=== PATIENT | female | born 1985 | race Caucasian/White ===

== ENCOUNTER → 2016-07-07 | Outpatient (CLI) | payer OTHER ==
[~2016-07-07] MED LIST: GADOBUTROL 10 ML VIAL IVP ONE
== END ==
LOC: FIMAGING 09:34
PROVIDERS: ATTEND Obstetrics & Gynecology
DX: R92.8 Other abnormal and inconclusive findings on diagnostic imaging of breast (principal); Z15.01 Genetic susceptibility to malignant neoplasm of breast
CPT/HCPCS: 0159T; A9585; C8908

== ENCOUNTER → 2016-07-19 | Outpatient (CLI) | payer OTHER | LOC: FIMAGING 07-14 14:36 | PROVIDERS: ATTEND Obstetrics & Gynecology | DX: Z12.31 Encounter for screening mammogram for malignant neoplasm of breast (principal) | CPT/HCPCS: G0204 ==

== ENCOUNTER 2016-08-13 05:50 | Day surgery (SDC) | payer OTHER ==
[2016-08-13] MEDS ORDERED: LR 1,000 ML IV ONE (06:38)
[2016-08-13] MEDS ORDERED: SURGIFLO MATRIX KIT WITH THROMBIN TP ONE (07:03)
[2016-08-13] MEDS ORDERED: BUPIVACAINE 0.25% 30 ML SDV ONE (07:03)
[2016-08-13] MEDS ORDERED: SILVER NITRATE APPLICATOR 1 APPL TP ONE (07:03)
[2016-08-13] MEDS ORDERED: METHYLENE BLUE 0.5% 50 MG/10 ML AMP ONE (07:03)
[2016-08-13] MEDS ORDERED: MIDAZOLAM 2 MG/2 ML VIAL ONE (07:14)
[2016-08-13] MEDS ORDERED: fentaNYL 100 MCG/2 ML INJ ONE ×3 (07:20→09:34)
[2016-08-13] MEDS ORDERED: PROPOFOL 200 MG/20 ML VIAL ONE (07:23)
--- NOTE | 2016-08-13 09:39 | GOP ---
[f rep st] OPERATIVE REPORT DATE OF OPERATION: 08/13/2016 SURGEON: Thais Weathers MD COLORER: Leigh Ann Ramirez MD ANESTHESIA: General anesthesia with ET tube. ANESTHESIOLOGIST: Umang Jorge MD PREOPERATIVE DIAGNOSIS: Undesired fertility. POSTOPERATIVE DIAGNOSIS: Undesired fertility. PROCEDURE PERFORMED: Laparoscopic bilateral salpingectomy. FINDINGS: Normal intraabdominal cavity. Normal uterus, bilateral tubes and ovaries. SPECIMENS: Pelvic washings, bilateral fallopian tubes. ESTIMATED BLOOD LOSS: 10 mL INDICATIONS: Patient is a 31-year-old, G0 who states that she does not desire future fertility. She is 100% certain about this decision and has completed multiple counseling sessions in the office. Of note, she also has a history of BRCA2. She was counseled extensively on the recommendation for a risk reducing bilateral salpingo-oophorectomy. Despite this history, however, she is very adamant that she would like to retain her ovaries at this time and she would instead like to proceed with salpingectomy for purposes of sterilization. She is aware that if there is a cancer found in the fimbriated ends of the fallopian tubes, that she may need to proceed with additional surgeries which also could include oophorectomy. DESCRIPTION OF PROCEDURE: Patient was brought to the operating room and a time- out was performed with all parties present. General anesthesia was induced with ET tube without complication. She was prepped and draped in the normal sterile fashion in dorsal lithotomy position with her arms tucked and a Krishna catheter in place. A speculum was placed in the vagina. The anterior lip of the cervix was grasped with a single-tooth tenaculum and an acorn uterine manipulator was placed. Then 0.25% plain Marcaine was injected into the umbilicus and a 5 mm incision was made. Two attempts were made with the Veress needle and neither time reached the intraperitoneal cavity. So the decision was made to proceed with an open left laparoscopy using a Jerome port. A 10 mm incision was made. The fascia was grasped and entered sharply. The peritoneum was then entered bluntly. The Jerome port was placed and the abdomen was insufflated to 15 mmHg. She was placed in trendelenburg position and the findings were as noted above. After injection of 0.25% Marcaine, we placed two 5 mm lower abdominal ports on either side under direct visualization. A pelvic washing was then performed. Attention was turned to the right fallopian tube. The underlying mesosalpinx was grasped at the fimbriated end insuring to get all the fimbria in the specimen and it was serially cauterized and cut using the LigaSure. This was then brought all the way to the level of the cornua. The fallopian tube was then cross-clamped, cauterized and cut and removed completely intact at the level of the cornua. The same procedure was performed on the left. Both tubes were sent separately to pathology for serial sectioning given her history of BRCA. Hemostasis was noted. Ports were removed. The fascia of the 10 mm incision was closed. The skin of each incision was closed with 4-0 Monocryl and Dermabond was then placed. Krishna catheter was removed. Counts correct x 2. The patient was awakened and brought to recovery room in good condition. COMPLICATIONS: None. IV FLUIDS: 700 mL. URINE OUTPUT: 120 mL via Krishna. /[id number]/MODL MTDD
== END 2016-08-13 11:00 | disposition home or self-care (01) ==
LOC: FSGY 05:50
PROVIDERS: ATTEND Obstetrics & Gynecology
PROC: 0UT74ZZ Resection of Bilateral Fallopian Tubes, Percutaneous Endoscopic Approach (ICD-10-PCS; principal; 2016-08-13 07:30)
DX: Z30.2 Encounter for sterilization (principal); Z15.01 Genetic susceptibility to malignant neoplasm of breast; F31.9 Bipolar disorder, unspecified; K21.9 Gastro-esophageal reflux disease without esophagitis; J45.909 Unspecified asthma, uncomplicated
CPT/HCPCS: J2250; J2704; J3010; Q9968

== ENCOUNTER → 2016-09-03 | Outpatient (CLI) | payer OTHER | LOC: FIMAGING 07:10 | PROVIDERS: ATTEND Psychiatry & Neurology Neurology | DX: M41.84 Other forms of scoliosis, thoracic region (principal) | CPT/HCPCS: A9585 ==

== ENCOUNTER → 2016-09-13 | Outpatient (CLI) | payer OTHER | PROVIDERS: ATTEND Psychiatry & Neurology Neurology | DX: R13.10 Dysphagia, unspecified (principal); K21.9 Gastro-esophageal reflux disease without esophagitis | CPT/HCPCS: 92611-GN ==

== ENCOUNTER → 2016-09-28 | Outpatient (CLI) | payer OTHER | LOC: FIMAGING 07:53 | PROVIDERS: ATTEND Psychiatry & Neurology Neurology | DX: M41.86 Other forms of scoliosis, lumbar region (principal); Q76.49 Other congenital malformations of spine, not associated with scoliosis ==

== ENCOUNTER → 2016-10-01 | Outpatient (CLI) | payer OTHER | LOC: FIMAGING 13:17 | PROVIDERS: ATTEND Psychiatry & Neurology Neurology | DX: R13.10 Dysphagia, unspecified (principal); R20.0 Anesthesia of skin | CPT/HCPCS: A9585 ==

== ENCOUNTER → 2017-01-24 | Outpatient (CLI) | payer OTHER | LOC: FIMAGING 14:02 | PROVIDERS: ATTEND Obstetrics & Gynecology | DX: Z15.01 Genetic susceptibility to malignant neoplasm of breast (principal) | CPT/HCPCS: G0204 ==

== ENCOUNTER → 2017-06-21 | Outpatient (CLI) | payer OTHER | LOC: FIMAGING 10:11 | PROVIDERS: ATTEND Obstetrics & Gynecology | DX: Z15.01 Genetic susceptibility to malignant neoplasm of breast (principal) | CPT/HCPCS: 0159T; A9585; C8908 ==

== ENCOUNTER → 2017-07-09 | Outpatient (CLI) | payer OTHER | LOC: BMCIMAGING 16:31 | PROVIDERS: ATTEND Emergency Medicine | DX: M79.671 Pain in right foot (principal) ==

== ENCOUNTER → 2017-12-29 | Outpatient (CLI) | payer OTHER | LOC: FIMAGING 12:26 | PROVIDERS: ATTEND Obstetrics & Gynecology | DX: N63.10 Unspecified lump in the right breast, unspecified quadrant (principal) ==

== ENCOUNTER 2018-06-24 14:43 | Emergency (ER) | payer OTHER ==
--- NOTE | 2018-06-24 15:02 | EDPHY ---
H & P Stated Complaint: L arm cat bite 4 days ago in [place] Time Seen by Provider: 06/24/18 14:56 - Personal History LMP (Females 10-55): Unknown - Medical/Surgical History Hx Asthma: Yes Hx Chronic Respiratory Disease: No Hx Diabetes: No Hx Cardiac Disease: No Hx Renal Disease: No Hx Cirrhosis: No Hx Alcoholism: No Hx HIV/AIDS: No Hx Splenectomy or Spleen Trauma: No Other PMH: bipolar illness, asthma - Social History Smoking Status: Never smoked Constitutional: Initial Vital Signs Temperature (C) 36.7 C 06/24/18 14:50 Heart Rate 68 06/24/18 14:50 Respiratory Rate 18 06/24/18 14:50 Blood Pressure 140/80 H 06/24/18 14:50 O2 Sat (%) 100 06/24/18 14:50 O2 Delivery Mode Room Air Allergies/Adverse Reactions: ciprofloxacin [From Cipro] Allergy (Unknown, Verified 07/04/12 14:54) guaifenesin [Guaifenesin] Allergy (Unknown, Verified 07/23/16 15:08) Hives Penicillins Allergy (Unknown, Verified 07/23/16 15:08) Hives Home Medications: Medication Instructions Recorded ALPRAZolam [Alprazolam Odt] 07/04/12 Levothyroxine [Synthroid 75 mcg 07/04/12 (RX)] Hurricane Carbonate ER [Lithobid 300 900 mg PO BID 07/04/12 mg (RX)] metFORMIN SR [Glucophage XR 500 mg 500 mg PO DAILY@1800 07/04/12 (RX)] Benztrapine 01/07/13 Latuda 01/07/13 Albuterol 02/07/15 DEXILANT 02/07/15 Propanolol 02/07/15 Advil 07/23/16 CO Q-10 07/23/16 Fish Oil 07/23/16 Melatonin 07/23/16 VITAMIN D 07/23/16 Medical Decision Making ED Course/Re-evaluation: CHIEF COMPLAINT: Cat bite in [place] HISTORY OF PRESENT ILLNESS: The patient is a 32 y/o female complaining of a cat bite to her left wrist 3 days ago while in [place]. She is unsure if the cat had any diseases or is vaccinated as it was a feral resort cat. She has not had any pain, warmth, or signs of infection after the cat bite. However, she became concerned that she might have rabies or another disease. She did look at the [facility] web site, which stated that rabies is not active in [place], but she was still concerned. No fever, headache, body aches, lightheadedness, chest pain , heart palpitations, shortness of breath, cough, abdominal pain, urinary or bowel complaints, numbness, paresthesias. REVIEW OF SYSTEMS: A 10 point review of systems was performed and is negative with the exception of the elements mentioned in the history of present illness. PHYSICAL EXAM: HR, BP, O2 Sat, RR. Temp noted General Appearance: Alert, well hydrated, appropriate, and non-toxic appearing. Head: Atraumatic without scalp tenderness or obvious injury Eyes: Pupils equal, round, reactive to light and accommodation, EOMI, no trauma , no injection. Ears: Clear bilaterally, no perforation, normal landmarks Nose: Atraumatic, no rhinorrhea, clear. Throat: There is no erythema or exudates, no lesions, normal tonsils, mucus membranes moist. Neck: Supple, 2+ carotid upstroke, nontender, no lymphadenopathy. Respiratory: No retractions, no distress, no wheezes, and no accessory muscle use. Lungs are clear to auscultation bilaterally. Cardiovascular: Regular rate and rhythm, no murmurs, rubs, or gallops. Bilateral carotid, radial, dorsalis pedis, and posterior tibial pulses intact. Good capillary refill all extremities. Gastrointestinal: Abdomen is soft, nontender, non-distended, no masses, no rebound, no guarding, no peritoneal signs. Musculoskeletal: Normal active ROM of all extremities, atraumatic. Neurological: Alert, appropriate, and interactive. The patient has normal DTRs and non-focal cranial nerves, motor, sensory, and cerebellar exam. Skin: No rashes, good turgor, no nodules on palpation. Past medical history: Bipolar, asthma Past surgical history: Denies Family history: Denies Social history: Lives in [place], [facility], employed DIAGNOSTICS/PROCEDURES/CRITICAL CARE TIME: Not indicated. DIFFERENTIAL DIAGNOSIS: The differential diagnosis included but was not limited to cellulitis, laceration, abrasion, urticarial reaction, and other infectious causes for skin rash. MEDICAL DECISION MAKING: The patient is a 32 y/o female presenting with a cat bite to her left wrist 3 days ago while in [place]. The cat was a feral resort cat, but the patient has not had any signs of infection. The patient has a normal physical exam and I cannot discern where the cat bit her on her left wrist. Labs and imaging studies are not indicated as she would be systemically sick by now if there was an infection. She would like a tetanus vaccination although there is no indication for this as there is no puncture site. However, I am comfortable with administering the tetanus vaccination. I discussed the risks and benefits associated with rabies and the rabies vaccination. She would like to follow up with her PCP or a clinic outpatient to get the rabies vaccination prophylactically. Return precautions provided; patient is comfortable with this plan. Departure - Departure Disposition: Home, Routine, Self-Care Clinical Impression: Vaccine for diphtheria-tetanus Cat bite Qualifiers: Encounter type: initial encounter Qualified Code(s): W55.01XA - Bitten by cat, initial encounter Condition: Good Instructions: Animal Bite (ED) Additional Instructions: 1. Follow up with the [facility], [facility] [place], or your PCP if you would like a rabies vaccination. 2. Return to the Emergency Department for fever, redness, discharge from wound, increasing pain or other worsening of condition. Referrals: [facility] (ED,. [Edm Groups for Call Sched] - As per Instructions Report Scribed for: Israel Peralta Report Scribed by: Cristal Ramirez Date of Report: 06/24/18 Time of Report: 15:07
[2018-06-24] MEDS ORDERED: TDAP ADULT 0.5 ML INJ (BOOSTRIX) IM ONE (15:17)
[2018-06-24 15:27] VITALS: BP 119/73
== END 2018-06-24 15:24 | disposition home or self-care (01) ==
DX: S61.552A Open bite of left wrist, initial encounter (principal); Z23 Encounter for immunization; W55.01XA Bitten by cat, initial encounter; Y92.838 Other recreation area as the place of occurrence of the external cause; Y93.9 Activity, unspecified; Y99.9 Unspecified external cause status

== ENCOUNTER → 2018-08-31 | Outpatient (CLI) | payer OTHER | LOC: FIMAGING 06:27 | PROVIDERS: ATTEND Obstetrics & Gynecology | DX: Z15.01 Genetic susceptibility to malignant neoplasm of breast (principal) | CPT/HCPCS: A9585; C8908 ==

== ENCOUNTER 2018-09-18 11:25 | Emergency (ER) | payer OTHER | END 2018-09-18 13:35 | disposition home or self-care (01) ==